=== PATIENT | male | born 1950 | race Hispanic/Latino ===

== ENCOUNTER 2018-02-28 06:35 | Day surgery (SDC) | payer MEDICARE ==
[2018-02-28] MEDS ORDERED: NACL 0.9% 500 ML 500 ML IV SCH (07:00)
[2018-02-28 07:22] LABS: Basophils # (Auto) 0.1 K/mm3 (0.0-0.1); Basophils % (Auto) 1.4 % (0.0-1.8); Eosinophils # (Auto) 0.2 K/mm3 (0.0-0.4); Eosinophils % (Auto) 3.4 % (0.0-4.3); Hematocrit 43.3 % (35.5-45.6); Hemoglobin 14.2 gm/dl (11.8-15.2); Lymphocytes # (Auto) 1.7 K/mm3 (1.2-5.4); Lymphocytes % (Auto) 27.6 % (13.4-35.0); Mean Corpuscular HGB Conc 33 % (32-34); Mean Corpuscular Hemoglobin 28 pg (28-32); Mean Corpuscular Volume 86 fl (84-94); Monocytes # (Auto) 0.6 K/mm3 (0.0-0.8); Monocytes % (Auto) 9.8 % (0.0-7.3); Platelet Count 195 K/mm3 (140-440); Red Blood Count 5.01 M/mm3 (3.65-5.03); Red Cell Distribution Width 15.6 % (13.2-15.2)
[2018-02-28 07:30] LABS: INR 0.87 (0.87-1.13)
[2018-02-28 07:35] LABS: BUN/Creatinine Ratio 22; Blood Urea Nitrogen 24 mg/dL (9-20); Calcium 9.3 mg/dL (8.4-10.2); Hemolysis Index 20
[2018-02-28] MEDS ORDERED: HEPARIN/NS 5000 UNIT/500ML(CATH LAB) 1,500 ML IR ONE (08:33)
[2018-02-28] MEDS: SUBLIMAZE ONE ×4 (09:00→10:38)
[2018-02-28] MEDS: VERSED ONE ×4 (09:00→10:38)
[2018-02-28] MEDS: XYLOCAINE 2% INFILTRATI ONE ×2 (09:10→09:14)
[2018-02-28] MEDS: HEPARIN 10,000 UNITS/10 ML ONE ×2 (09:59→10:25)
[2018-02-28] MEDS ORDERED: NACL 0.9% 500 ML 500 ML ONE (10:24)
[2018-02-28] MEDS ORDERED: TYLENOL PO ONE (14:12)
[2018-02-28 17:55] VITALS: BP 100/67
--- NOTE | 2018-03-18 12:10 | Procedure Note ---
INDICATIONS: A 67-year-old white gentleman with known severe peripheral vascular disease with stenting of the iliac arteries and subclavian with history of left subclavian intervention and also has history of occluded left internal carotid artery and moderate stenosis of the right internal carotid artery. Underwent stenting of the ostial left common iliac lesion in 07/2011. The patient has history of aortocoronary bypass, history of coronary artery disease, underwent aortocoronary bypass surgery done on 12/17/2003 with underlying severe LV dysfunction, EF of 25% and diabetes mellitus. The patient is having significant bilateral claudication. He had peripheral angiogram performed, which showed bilateral occlusions of the mid to distal SFA. Because of his significant claudication with severe stenosis of both superficial femoral arteries, it was felt the patient would benefit from intervention of these lesions. The patient was explained of the procedure, potential complications, and alternatives of therapy available including exercise therapy and medical therapy. In spite of the appropriate medical therapy, patient is experiencing significant claudication and it was decided to do intervention of the left superficial femoral artery occlusion first followed at a later date by intervention of the right superficial femoral artery. The patient was explained of the procedure, informed consent was obtained. The patient was evaluated for moderate sedation and it was felt he is appropriate for the same. DESCRIPTION OF PROCEDURE: The patient was brought to the catheterization laboratory. Both the groins were prepared with Betadine solution. Sterile drapes were applied. Time out was carried out and was sedated with IV Versed and fentanyl around 08:54 a.m. Subsequently, local anesthesia was given in the right common femoral area. Using 5-Telugu micropuncture needle, puncture of the right common femoral artery was performed under fluoroscopy. Subsequently, 5-Telugu sheath was introduced. Using 5-Telugu rim catheter, attempt was made to enter the left common femoral area. However, the patient had the stent in the left common iliac artery including the ostium. It was difficult to manipulate; however with Terumo wire could advance the wire into the left superficial femoral artery and 6-Telugu destination sheath was advanced into the right common femoral area. Subsequent angiograms showed evidence of heavy calcification throughout the superficial femoral artery area with occlusion in the mid part into the distal SFA. Visualization of the distal SFA is noted through the collaterals from the deep femoral artery. Using a 0.035 x 135 cm Trailblazer support catheter and Terumo wire, gradually wire was advanced intraluminally. Also required use of Choice PT 0.014 inch wire to manipulate the wire into the distal SFA. After significant time, able to enter the distal SFA intraluminally. The V-18 wire was advanced through the Trailblazer support catheter. Subsequently, lesion was dilated with NanoCross taper 4.0 x 2010 balloon followed by dilating the lesion with a 5.0 x 200 mm EverCross balloon. Subsequently, still lot of recoil was noted. This is heavily calcific lesion. Hence, an EverFlex self-expanding 6 x 200 mm stent was deployed without difficulty and post-dilated with 6 mm x 200 mm EverCross balloon multiple times. Very good result was obtained with widely patent occluded area noted. Final angiogram showed no evidence of distal embolization. Well patent distal SFA, popliteal, and infrapopliteal arteries were noted. The patient tolerated the procedure well without any significant hemodynamic changes or pain. Final angiogram showed a very good result without any obvious evidence of complications of dissection or perforation. The patient tolerated the procedure well and the patient was transferred to the recovery area. Sheath will be removed once ACT is below 200 seconds. The patient was monitored for sedation up to 11:15 a.m. in the catheterization laboratory. It is to be noted the patient was heparinized with IV heparin once intervention was started and supplemented with extra doses. As mentioned above, the patient is stable throughout the procedure. The patient was sedated from 8:54 a.m. to 11:15 a.m. FINAL IMPRESSION: Uncomplicated balloon angioplasty and self-expanding stent placement of the mid and distal left SFA with very good result and no complications. The patient will be monitored for next few hours and will be hydrated with normal saline. Good distal pulses were noted in the left posterior tibial and dorsalis pedis after the procedure. No evidence of hematoma noted in the right groin. PLAN: At this time is to attempt the intervention of the right SFA few weeks later. JOB# [id number] FEDE/WHIT RECIO
== END 2018-02-28 18:30 | disposition home or self-care (01) ==
LOC: CATHLABREC 06:35
PROVIDERS: ATTEND Internal Medicine
DX: I70.213 Atherosclerosis of native arteries of extremities with intermittent claudication, bilateral legs (principal); Z79.01 Long term (current) use of anticoagulants
CPT/HCPCS: 36415; 37226; 80048; 85025; 85347; 85610; 85730; 99156; 99157; C1725; C1769; C1876; C1894; J1644; J2250; J3010; J7040; Q9967

== ENCOUNTER 2018-03-20 06:23 | Day surgery (SDC) | payer MEDICARE ==
[2018-03-20] MEDS ORDERED: NACL 0.9% 500 ML 500 ML ONE (06:54)
[2018-03-20] MEDS ORDERED: NACL 0.9% 500 ML 500 ML IV SCH (07:00)
[2018-03-20 07:34] LABS: BUN/Creatinine Ratio 24; Blood Urea Nitrogen 24 mg/dL (9-20); Calcium 9.1 mg/dL (8.4-10.2); Hemolysis Index 17
[2018-03-20] MEDS ORDERED: HEPARIN/NS 5000 UNIT/500ML(CATH LAB) 1,000 ML IR ONE (08:31)
[2018-03-20] MEDS ORDERED: ANCEF/STERILE WATER 2 GM/20 ML 0 GM/0 ML SYRINGE IV ONE (08:32)
[2018-03-20] MEDS ORDERED: XYLOCAINE 2% INFILTRATI ONE (08:32)
[2018-03-20] MEDS ORDERED: HEPARIN/NS 5000 UNIT/500ML(CATH LAB) 500 ML IR ONE (09:07)
[2018-03-20] MEDS: SUBLIMAZE ONE ×9 (09:09→10:41)
[2018-03-20] MEDS: VERSED ONE ×8 (09:09→10:41)
[2018-03-20] MEDS: HEPARIN 10,000 UNITS/10 ML ONE ×2 (09:49→10:25)
[2018-03-20] MEDS ORDERED: NACL 0.9% 1000 ML 1,000 ML ONE (10:00)
--- NOTE | 2018-03-20 11:58 | Cardiac Catherization Report ---
PERIPHERAL INTERVENTION REPORT The patient is a 67-year-old white gentleman with known history of coronary artery disease and severe peripheral vascular disease with stent placement in the left common iliac artery many years ago. He has bilateral severe claudication and underwent intervention of the left SFA using right femoral artery access few weeks ago. This was successful. The patient presently having claudication, right lower extremity with walking 50-100 feet. Hence, the patient is scheduled for intervention of the right SFA. I explained the procedure, potential complications and alternatives of therapy available to the patient. The procedure complications including bleeding, leading to blood transfusion, acute thrombosis and vascular complications can lead to limb loss. They understand and they agreed to proceed with intervention. DESCRIPTION OF PROCEDURE: The patient was brought to the catheterization laboratory in a fasting condition. Both the groins were prepared with chlorhexidine solution. Sterile drapes were applied. Time out was carried out and the patient was sedated with IV Versed and fentanyl around 9:09 a.m. Subsequently, left femoral artery access was obtained with 5-Puerto Rican micropuncture needle. Subsequently, 5-Puerto Rican sheath was introduced in the left groin and 5-Puerto Rican rim catheter was advanced to the aortic bifurcation. However, there is a stent in the left common iliac ostium. He has some difficulty to navigate the catheter. Required changing the 0.035 wire to 0.035 Advantage guidewire. Subsequently, Advantage guidewire was advanced over the Trailblazer support catheter into the distal right SFA. A 6-Puerto Rican destination sheath was advanced with some difficulty into the right common femoral area under fluoroscopy. Angiogram showed 50-60% moderate proximal SFA lesion along with severe heavy calcification throughout the SFA with occlusion in the mid to distal part and reconstitution through the collaterals from the profunda femoris artery at the level of the very distal SFA and proximal popliteal artery. There is a 2-vessel runoff distally with a large posterior tibial artery. The patient was given 8000 units of IV heparin. Subsequently, using the 0.018 Trailblazer support catheter and also using V-18 guidewire lesion was crossed and entered the right popliteal artery. Subsequently, 0.014 [place] wire was placed through the Trailblazer support catheter. Lesion was dilated with 4.0 NanoCross balloon up to 12 atmospheres. This was done across the entire distal SFA and mid SFA. Subsequently, lesion was dilated with 5 mm x 20 mm balloon. This is followed by placement of an EverFlex 6 x 60 mm self-expanding balloon was inserted starting from the very distal part of the SFA to the mid SFA. This is dilated with 6 x 200 mm EverCross balloon. There is a moderate disease noted in the proximal SFA for which 6 x 60 EverFlex self-expanding stent was inserted followed by dilation with EverCross 6 mm x 40 mm balloon. Final angiogram showed widely patent proximal and mid distal SFA along with widely patent posterior tibial and anterior tibial. No complications of dissection or perforation or embolization noted. The patient tolerated the procedure well without any leg pain, hemodynamically stable. He was monitored with pressure monitoring along with EKG and oxygen saturation monitoring. The patient has some left shoulder pain, but otherwise no other complications. The patient's rhythm has been stable. Patient was monitored for sedation until 11:00 AM,when he was transferred to recovery area. FINAL IMPRESSION: Uncomplicated balloon angioplasty and self-expanding stent placement of the proximal, mid, and distal SFA with good result.Left femoral access was used,manual pressure will be applied for hemostasis. Catheter and sheath were removed and manual pressure will be applied in the left groin area. The patient is already and will be continued on his previous medications including aspirin and clopidogrel in addition to atorvastatin. The patient was monitored for next 2-3 hours and will be discharged home once he is stable. Findings were explained to the patient. He understands. JOB# [id number] FEDE/WHIT RECIO
[2018-03-20] MEDS ORDERED: NACL 0.9% 1000 ML 1,000 ML IV SCH (12:00)
[2018-03-20] MEDS ORDERED: TYLENOL ONE (13:58)
[2018-03-20] MEDS ORDERED: TYLENOL PO ONE (14:01)
[2018-03-20] MEDS ORDERED: PERCOCET 5/325 ONE (14:15)
[2018-03-20] MEDS ORDERED: PERCOCET 5/325 PO ONE (14:15)
--- NOTE | 2018-03-20 15:16 | Short Stay Summary ---
Short Stay Documentation Date of service: 03/20/18 - History H&P: obtained from office - Allergies and Medications Current Medications: Allergies rosuvastatin calcium [From Crestor] Adverse Reaction (Verified 07/10/15 08:23) Itching Home Medications Medication Instructions Recorded Confirmed Last Taken Type Carvedilol 12.5 mg PO BID 07/10/15 03/20/18 03/20/18 05:30 History Clopidogrel Bisulfate [Clopidogrel] 75 mg PO DAILY 07/10/15 03/20/18 03/18/18 History Fenofibric Acid (Choline) 1 each PO DAILY 07/10/15 03/20/18 03/18/18 History [Fenofibric Acid] RX: AtorvaSTATin [Lipitor] 40 mg PO QHS 07/10/15 03/20/18 03/19/18 History Sertraline HCl 100 mg PO PRN 07/10/15 03/20/18 09/28/15 History 150mg Sitagliptin Phosphate [Januvia] 100 mg PO DAILY 07/10/15 03/20/18 03/19/18 History glipiZIDE [Glipizide ER] 10 mg PO BID 07/10/15 03/20/18 03/19/18 History Sacubitril/Valsartan [Entresto 24 1 tab PO BID 09/29/15 03/20/18 03/20/18 05:30 History mg-26 mg Tablet] Active Medications Sodium Chloride (Nacl 0.9% 500 Ml) 500 mls @ 50 mls/hr IV DIRECT ERIK Stop: 03/20/18 16:59 Last Admin: 03/20/18 07:27 Dose: 50 mls/hr Sodium Chloride (Nacl 0.9% 1000 Ml) 1,000 mls @ 150 mls/hr IV DIRECT ERIK Last Admin: 03/20/18 12:18 Dose: 150 mls/hr - Brief post op/procedure progress note Date of procedure: 03/20/18 Pre-op diagnosis: PVD Post-op diagnosis: same Procedure: peripheral angiogram with intervention - see dictated cath report Anesthesia: local Estimated blood loss: none Condition: stable - Disposition Condition at discharge: Stable Disposition: DC-01 TO HOME OR SELFCARE - Discharge Diagnoses (1) PAD (peripheral artery disease) Status: Chronic Short Stay Discharge Plan Activity: advance as tolerated Diet: low fat, low cholesterol, low salt Wound: open to air, keep clean and dry, per your surgeon's advice Follow up with: DHARMESH CAMPOS MD [Staff Physician] - 7 Days PRIMARY CARE, [Primary Care Provider] - 7 Days Forms: Post Arteriogram Instruct
[2018-03-20 15:52] VITALS: BP 118/63
== END 2018-03-20 16:30 | disposition home or self-care (01) ==
LOC: CATHLABREC 06:23
PROVIDERS: ATTEND Internal Medicine
DX: I70.213 Atherosclerosis of native arteries of extremities with intermittent claudication, bilateral legs (principal); I25.10 Atherosclerotic heart disease of native coronary artery without angina pectoris; I11.0 Hypertensive heart disease with heart failure; I50.42 Chronic combined systolic (congestive) and diastolic (congestive) heart failure; E78.5 Hyperlipidemia, unspecified; Z88.8 Allergy status to other drugs, medicaments and biological substances; Z79.82 Long term (current) use of aspirin; Z79.899 Other long term (current) drug therapy; Z82.49 Family history of ischemic heart disease and other diseases of the circulatory system
CPT/HCPCS: 36415; 37226; 80048; 85347; 99156; 99157; C1725; C1769; C1876; J1644; J2250; J3010; J7030; J7040; J0690; Q9967

== ENCOUNTER 2018-05-22 05:35 | Day surgery (SDC) | payer MEDICARE ==
[2018-05-22] MEDS ORDERED: NACL 0.9% 1000 ML 1,000 ML IV SCH (07:00)
[2018-05-22] MEDS ORDERED: NACL 0.9% 500 ML 500 ML IV SCH (07:00)
[2018-05-22] MEDS ORDERED: HEPARIN 10,000 UNITS/10 ML ONE (08:34)
[2018-05-22] MEDS ORDERED: HEPARIN/NS 5000 UNIT/500ML(CATH LAB) 1,000 ML IR ONE (08:34)
[2018-05-22] MEDS ORDERED: NACL 0.9% 500 ML 0 ML ONE (08:35)
[2018-05-22] MEDS: HumaLOG SUB-Q SCH ×2 (09:05→11:51)
[2018-05-22] MEDS ORDERED: HumaLOG SUB-Q NR (09:15)
[2018-05-22] MEDS ORDERED: HEPARIN/NS 5000 UNIT/500ML(CATH LAB) 500 ML IR ONE (09:21)
[2018-05-22] MEDS: VERSED ONE ×3 (09:26→10:29)
[2018-05-22] MEDS: SUBLIMAZE ONE ×3 (09:26→10:29)
[2018-05-22] MEDS: XYLOCAINE 2% INFILTRATI ONE ×2 (09:27→09:33)
[2018-05-22] MEDS ORDERED: D50W (25GM) Syringe IV PRN (09:30)
--- NOTE | 2018-05-22 13:22 | Short Stay Summary ---
Short Stay Documentation Date of service: 05/22/18 - History H&P: obtained from office - Allergies and Medications Current Medications: Allergies rosuvastatin calcium [From Crestor] Adverse Reaction (Verified 07/10/15 08:23) Itching Home Medications Medication Instructions Recorded Confirmed Last Taken Type AtorvaSTATin [Lipitor] 40 mg PO QHS 07/10/15 05/22/18 05/21/18 History Carvedilol 12.5 mg PO BID 07/10/15 05/22/18 05/22/18 History Clopidogrel Bisulfate [Clopidogrel] 75 mg PO DAILY 07/10/15 05/22/18 05/21/18 History Fenofibric Acid (Choline) 1 each PO DAILY 07/10/15 05/22/18 05/21/18 History [Fenofibric Acid] Sertraline HCl 100 mg PO PRN 07/10/15 05/22/18 05/21/18 History Sitagliptin Phosphate [Januvia] 100 mg PO DAILY 07/10/15 05/22/18 1 Week Ago History ~05/15/18 glipiZIDE [Glipizide ER] 10 mg PO BID 07/10/15 05/22/18 05/21/18 History Sacubitril/Valsartan [Entresto 24 1 tab PO BID 09/29/15 05/22/18 05/21/18 History mg-26 mg Tablet] Active Medications Dextrose (D50w (25gm) Syringe) 50 ml IV PRN PRN PRN Reason: Hypoglycemia Sodium Chloride (Nacl 0.9% 1000 Ml) 1,000 mls @ 100 mls/hr IV DIRECT ERIK Last Admin: 05/22/18 07:00 Dose: 100 mls/hr Insulin Human Lispro (Humalog) 0 unit SUB-Q ACHS ERIK; Protocol Last Admin: 05/22/18 11:51 Dose: 2 unit - Brief post op/procedure progress note Date of procedure: 05/22/18 Pre-op diagnosis: PVD Post-op diagnosis: same Procedure: peripheral angiogram - see cath report Anesthesia: local Estimated blood loss: none Condition: stable - Disposition Condition at discharge: Stable Disposition: DC-01 TO HOME OR SELFCARE - Discharge Diagnoses (1) PAD (peripheral artery disease) Status: Chronic Short Stay Discharge Plan Activity: advance as tolerated Diet: low fat, low cholesterol, low salt Wound: open to air, keep clean and dry, per your surgeon's advice Follow up with: PRIMARY CARE, [Primary Care Provider] - 7 Days DHARMESH CAMPOS MD [Staff Physician] - 7 Days ([place] office on 05/24/2018 @ 9:30AM for labwork [place] office on 06/08/2018 @ 2:15PM with Dr. Campos)
--- NOTE | 2018-05-22 14:55 | Cardiac Catherization Report ---
PERIPHERAL ANGIOGRAM AND INTERVENTION The patient is a 68-year-old white gentleman with severe peripheral vascular disease and coronary artery disease. He had a recent intervention of the right SFA performed on 03/20/2018. The patient had stents inserted in the distal SFA and also proximal SFA with 6.5 x 60 mm EverFlex stent in the proximal part and 6 x 60 mm self-expanding stent in the mid to distal SFA. The patient in addition has stents in the left and right common iliac arteries. He also had stenting of the subclavian in the past. Presently, the patient is having severe claudication involving the right lower extremity. Noninvasive studies showed occlusion of the mid right SFA. Because of symptoms and noninvasive studies, the patient in spite of medical therapy, the patient was recommended angiogram and possible intervention, which he is agreeable. Informed consent was obtained. DESCRIPTION OF PROCEDURE: The patient was brought to the catheterization laboratory and evaluation was made for moderate sedation and when it was felt appropriate, the patient was sedated with IV Versed and fentanyl. Left groin and right groin was prepared with Betadine solution. Sterile drapes were applied. Local anesthesia was performed in the left groin and left femoral artery puncture was made using 5-Tunisian micropuncture needle. A 5-Tunisian sheath was introduced. Using the RIM catheter, Glidewire was advanced into the left SFA. Subsequently, 0.035 mm Trailblazer was advanced into the proximal SFA and angiogram was obtained, which showed evidence of total occlusion of the mid SFA in between the stents. Proximal stents are widely patent and distal stents, no flow was noted with reconstitution at the end of the distal stents. The patient was noted to have occluded segment in between the stents and attempt was made to cross this lesion. The patient received 6000 units of intravenous heparin. 6-Tunisian 45 cm destination sheath was advanced over the aortic bifurcation with difficulty and slowly. The destination sheath was advanced into right common femoral artery. Subsequently, using Trailblazer catheter, attempt was made to cross the occluded lesion in the mid SFA between the stents. However, this is going subintimally around the distal stents in spite of the multiple attempts. Considering not able to enter the intraluminal part of the stent in spite of multiple attempts, it was decided to stop the procedure and consider intervention of the lesion from retrograde access, which may be feasible. It is to be noted the patient had stents above and below this occluded segment and not able to enter the intraluminal part of the stents below. At the end of the procedure, guidewire and catheters were removed and a 6-Tunisian short sheath was introduced. Manual pressure will be applied. ACT is 180 seconds. The patient tolerated the procedure well with no untoward complications. Hemodynamically stable. The patient was monitored for sedation starting at 9:32 a.m. up to 10:43 a.m. He was monitored hemodynamically with pulse oximetry and electrocardiographically. The patient tolerated well. Vital signs have been stable. FINAL IMPRESSIONS: 1. Contrast angiograms of the right leg showed occluded mid SFA between the stents. Proximal stents are widely opened; distal to the stents, no flow is visualized with excellent collateral filling of the popliteal artery. 2. Attempted intervention of the occluded mid SFA on the right side; however, could not enter into the intraluminal part of the distal stents after attempting few times, hence procedure was aborted. PLAN: At this time is to consider intervention through retrograde access at a later date. Findings were explained to the patient. The patient will be monitored for his kidney function as an outpatient. The patient will be hydrated. No untoward complications noted. JOB# [id number] FEDE/WHIT RECIO
[2018-05-22 15:55] VITALS: BP 119/61
== END 2018-05-22 17:00 | disposition home or self-care (01) ==
LOC: CATHLABREC 05:35
PROVIDERS: ATTEND Internal Medicine
DX: I70.213 Atherosclerosis of native arteries of extremities with intermittent claudication, bilateral legs (principal); I11.0 Hypertensive heart disease with heart failure; I50.9 Heart failure, unspecified; I25.2 Old myocardial infarction; I25.10 Atherosclerotic heart disease of native coronary artery without angina pectoris; M19.90 Unspecified osteoarthritis, unspecified site; E78.00 Pure hypercholesterolemia, unspecified; G62.9 Polyneuropathy, unspecified; Z79.82 Long term (current) use of aspirin; Z79.4 Long term (current) use of insulin; Z79.899 Other long term (current) drug therapy; Z88.8 Allergy status to other drugs, medicaments and biological substances; Z95.1 Presence of aortocoronary bypass graft; Z87.891 Personal history of nicotine dependence; Z98.890 Other specified postprocedural states
CPT/HCPCS: 36247; 75710; 82962; 85347; 96372; 99156; 99157; C1725; C1769; C1887; C1894; J1644; J2250; J3010; J7030; J1815; J7040; Q9967

== ENCOUNTER 2018-05-30 05:52 | Day surgery (SDC) | payer MEDICARE ==
[2018-05-30] MEDS ORDERED: ANCEF/STERILE WATER 2 GM/20 ML 2 GM/20 ML SYRINGE IV NR (06:00)
[2018-05-30] MEDS ORDERED: NACL 0.9% 1000 ML 1,000 ML IV SCH (06:00)
[2018-05-30 06:42] LABS: Hematocrit 43.3 % (35.5-45.6); Hemoglobin 14.6 gm/dl (11.8-15.2); Mean Corpuscular HGB Conc 34 % (32-34); Mean Corpuscular Hemoglobin 29 pg (28-32); Mean Corpuscular Volume 86 fl (84-94); Platelet Count 239 K/mm3 (140-440); Red Blood Count 5.03 M/mm3 (3.65-5.03); Red Cell Distribution Width 15.1 % (13.2-15.2)
[2018-05-30 07:06] LABS: BUN/Creatinine Ratio 23; Blood Urea Nitrogen 21 mg/dL (9-20); Calcium 9.5 mg/dL (8.4-10.2); Hemolysis Index 12
[2018-05-30 07:16] LABS: Lymphocytes % (Auto) 27.6 % (13.4-35.0); Monocytes % (Auto) 9.4 % (0.0-7.3)
[2018-05-30 07:17] LABS: Eosinophils # (Auto) 0.2 K/mm3 (0.0-0.4); Eosinophils % (Auto) 2.5 % (0.0-4.3); Lymphocytes # (Auto) 2.2 K/mm3 (1.2-5.4); Monocytes # (Auto) 0.7 K/mm3 (0.0-0.8)
[2018-05-30 07:18] LABS: Basophils # (Auto) 0.1 K/mm3 (0.0-0.1)
[2018-05-30 07:32] LABS: Basophils % (Auto) 1.1 % (0.0-1.8)
[2018-05-30 07:33] LABS: INR 1.04 (0.87-1.13); Partial Thromboplastin Time 27.1 Sec. (24.2-36.6)
--- NOTE | 2018-05-30 07:55 | Short Stay Summary ---
Short Stay Documentation Date of service: 05/30/18 - History Principal diagnosis: RLE PVD with rest pain Past Medical History: PVD Past Surgical History: Other (Prior endovascular interventions) Social history: no significant social history - Allergies and Medications Current Medications: Allergies rosuvastatin calcium [From Crestor] Adverse Reaction (Verified 07/10/15 08:23) Itching Home Medications Medication Instructions Recorded Confirmed Last Taken Type AtorvaSTATin [Lipitor] 40 mg PO QHS 07/10/15 05/30/18 05/29/18 History Carvedilol 12.5 mg PO BID 07/10/15 05/30/18 05/28/18 History Clopidogrel Bisulfate [Clopidogrel] 75 mg PO DAILY 07/10/15 05/30/18 05/30/18 05 :00 History Fenofibric Acid (Choline) 1 each PO DAILY 07/10/15 05/30/18 05/29/18 History [Fenofibric Acid] Sertraline HCl 100 mg PO PRN 07/10/15 05/30/18 05/21/18 History Sitagliptin Phosphate [Januvia] 100 mg PO DAILY 07/10/15 05/30/18 05/22/18 History glipiZIDE [Glipizide ER] 10 mg PO BID 07/10/15 05/30/18 05/29/18 History Sacubitril/Valsartan [Entresto 24 1 tab PO BID 09/29/15 05/30/18 05/29/18 20:00 History mg-26 mg Tablet] Active Medications Cefazolin Sodium (Ancef/Sterile Water 2 Gm/20 Ml) 2 gm in 20 mls @ 80 mls/hr IV PREOP NR; Protocol Stop: 05/30/18 23:59 Sodium Chloride (Nacl 0.9% 1000 Ml) 1,000 mls @ 42 mls/hr IV DIRECT ERIK - Physical exam General appearance: no acute distress HEENT: Atraumatic Lungs: Normal air movement Breasts: deferred Heart: Regular rate Gastrointestinal: normal Male Genitourinary: deferred Rectal Exam: deferred Extremities: no pulses intact, abnormal Neurological: Normal gait, Normal speech - Brief post op/procedure progress note Date of procedure: 05/30/18 Pre-op diagnosis: PVD with rest pain right leg Post-op diagnosis: same (with rest pain right leg) Procedure: RLE revasc pedal approach Anesthesia: local Surgeon: RAVI GILBERT Estimated blood loss: minimal Pathology: none Condition: stable - Disposition Condition at discharge: Good Disposition: DC-01 TO HOME OR SELFCARE Short Stay Discharge Plan Activity: advance as tolerated Weight Bearing Status: Weight Bear as Tolerated Diet: regular Wound: keep clean and dry, per your surgeon's advice Follow up with: MARIAMA CAMARA MD [Primary Care Provider] - 7 Days Forms: Post Arteriogram Instruct Prescriptions: Oxycodone HCl/Acetaminophen [Percocet 10/325 mg] 1 each PO Q6HR PRN #40 tablet PRN Reason: Pain
[2018-05-30] MEDS ORDERED: HEPARIN 10,000 UNITS/10 ML ONE (11:09)
[2018-05-30] MEDS ORDERED: NACL 0.9% 500 ML 0 ML ONE (11:09)
[2018-05-30] MEDS ORDERED: HEPARIN/NS 5000 UNIT/500ML(CATH LAB) 1,000 ML IR ONE (11:09)
[2018-05-30] MEDS ORDERED: XYLOCAINE 2% INFILTRATI ONE (11:09)
[2018-05-30] MEDS ORDERED: CALAN ONE (11:32)
[2018-05-30] MEDS ORDERED: NITROGLYCERIN SYRINGE 3 ML ONE (11:32)
[2018-05-30] MEDS: VERSED ONE ×4 (11:49→13:05)
[2018-05-30] MEDS: SUBLIMAZE ONE ×6 (11:49→13:09)
[2018-05-30] MEDS ORDERED: NORCO 5/325 PO PRN ×2 (15:11→16:10)
[2018-05-30] MEDS ORDERED: NORCO 5/325 ONE (15:12)
--- NOTE | 2018-05-30 16:22 | Operative Report ---
Operative Report Operative Report: Exam: Stage revascularization of right lower extremity Clinical indication: Patient with a history of right lower extremity peripheral vascular disease with rest pain Date: 05/30/2018 Procedure: Following an explanation of the risks, benefits and alternatives; written informed consent was obtained. The patient was brought the angiographic suite and placed in supine position on the examination table. Initial ultrasound evaluation of the leg demonstrated a patent left posterior tibial artery. The patient right leg was prepped and draped in usual sterile fashion. 1% lidocaine was used for anesthesia. Under ultrasound guidance, the right posterior heel artery was cannulated with a 7 cm 21-gauge needle. A 0.018 guidewire was advanced centrally. The needle was removed and the inner portion of a micro-sheath placed. The mandrel wire was exchanged for a 014 guidewire which was advanced in the proximal posterior tibial artery. The micro-sheath was exchanged for an 018 [place] Blazer and together the Trailblazer catheter and micro-sheath were advanced more centrally. Imaging demonstrated stenosis to near complete occlusion of the origin of the posterior tibial artery. Attempts pass the catheter more distally were unsuccessful and balloon angioplasty of the posterior tibial artery was performed using a 2 mm by 220 mm balloon. Following angioplasty, the microcatheter and guidewire were advanced into the distal SFA. Contrast was injected at multiple points. There is a stent within the distal SFA stent within the proximal SFA, both are occluded as well as to segment them between the stents. The guidewire was advanced and ultimately across the occlusion within the distal stent. At this point, a 5 Uzbek low-profile sheath was placed in the posterior tibial artery. Together the catheter and guidewire were advanced into the proximal SFA and used to across the occluded stents and [place] SFA. Together the catheter and guidewire were advanced into the proximal SFA which is patent. Contrast injected demonstrates hibernating SFA at multiple locations supplied by collaterals. No flow within the [place] SFA or previously placed stents. Serial angioplasty of the SFA was performed using a 5 mm balloon followed by 6 mm balloon insufflated normal atmospheres for 1-2 minutes and multiple locations. Post angioplasty imaging demonstrated a patent flow throughout the SFA however, in-stent restenosis is noted as well as significant atherosclerotic disease. This point, the catheters, guidewires and sheaths were removed and the posterior tibial artery and hemostasis achieved using manual compression. A sterile dressing was then applied. The patient tolerated the procedure well. There were no immediate post procedure complications. Conscious sedation was performed under the guidance of radiologic nursing. Continuous cardiopulmonary monitoring was utilized. Impression: 1) Revascularization of the right lower extremity using angioplasty of the posterior tibial artery and angioplasty of the superficial femoral artery from a posterior tibial artery approach. 2) The patient will return in one week for antegrade access with atherectomy of the SFA using distal embolic protection as well as placement of drug-coated balloons to maintain patency of the SFA
[2018-05-30 16:51] VITALS: BP 138/67
== END 2018-05-30 16:45 | disposition home or self-care (01) ==
LOC: CATHLABREC 05:52
PROVIDERS: ATTEND Radiology Diagnostic Radiology
DX: I70.221 Atherosclerosis of native arteries of extremities with rest pain, right leg (principal); F32.9 Major depressive disorder, single episode, unspecified; E78.00 Pure hypercholesterolemia, unspecified; M19.90 Unspecified osteoarthritis, unspecified site; K21.9 Gastro-esophageal reflux disease without esophagitis; I11.0 Hypertensive heart disease with heart failure; I50.9 Heart failure, unspecified; G62.9 Polyneuropathy, unspecified; I25.10 Atherosclerotic heart disease of native coronary artery without angina pectoris; I25.2 Old myocardial infarction; Z79.84 Long term (current) use of oral hypoglycemic drugs; Z79.899 Other long term (current) drug therapy; Z79.01 Long term (current) use of anticoagulants; Z88.8 Allergy status to other drugs, medicaments and biological substances; Z95.810 Presence of automatic (implantable) cardiac defibrillator; Z95.1 Presence of aortocoronary bypass graft; Z98.890 Other specified postprocedural states
CPT/HCPCS: 36415; 37224; 37228; 80048; 85025; 85610; 85730; 99156; 99157; C1725; C1769; C1894; J1644; J2250; J3010; J7030; 76937; J7040; Q9967